=== PATIENT | female | born 1955 | race Caucasian/White ===

== ENCOUNTER → 2017-05-01 | Outpatient (CLI) | payer BC, OTHER ==
[~2017-05-01] MED LIST: ASPIRIN EC81 M1 PO; BAYER ASPIRIN325 M1 PO; FIBERCON625 MG PO; PLETAL100 M1 PO
--- NOTE | ~2017-05-01 | US37 ---
[facility] A Service of [facility] & [facility] RADIOLOGY TEXT RESULTS PATIENT: KARINA GARCIA LOCATION: CNIV : 53 UNIT #: [id number] AGE: [address]: Juan Luis Oconnor MD SEX: F ORDER DR: [id number] [facility] [address] [place], [place] [address] [id number] O MR#: [id number] Acc #: [id number] NAME: KARINA GARCIA : 1955 SEX: F STUDY DATE/TIME: 05/01/2017 9:47 UNIT: CNIV ROOM: STUDY DESCRIPTION: US Carotid W/Doppler Bilateral Attending Physician: Juan Luis Oconnor M.D. Referring Physician: Juan Luis Oconnor M.D. Ordering Physician: Juan Luis Oconnor M.D. Primary Care Physician: Vivi Kwong M.D. MEDICAL IMAGING REPORT This report is preliminary unless electronic signature is present EXAM Carotid duplex scan, 05/01/2017 HISTORY Carotid stenosis. FINDINGS The right common carotid artery has minimal plaque. There is a small amount of heterogeneous dense plaque in the right carotid bulb, which extends up into the proximal internal and external carotid arteries. Peak systolic velocity in the mid right internal carotid artery is 62 cm/sec with an end-diastolic velocity of 18 cm/sec. The ICA/CCA ratio on the right is 0.74. Peak systolic velocity in the right external carotid artery is 51 cm/sec. The right vertebral artery is patent with antegrade flow. The left common carotid artery has minimal plaque. There is a small amount of heterogeneous dense plaque in the left carotid bulb, which extends up into the proximal internal and external carotid arteries. Peak systolic velocity in the distal left internal carotid artery is 59 cm/sec with an end-diastolic velocity of 15 cm/sec. The ICA/CCA ratio on the left is 0.68. Peak systolic velocity in the left external carotid artery is 51 cm/sec. The left vertebral artery is patent with antegrade flow. IMPRESSION Small amount of plaque, but no significant stenosis (less than 50%) in the internal and external carotid arteries bilaterally. Patent vertebral arteries bilaterally with antegrade flow. Dictated by... [facility] A Service of [facility] & [facility] RADIOLOGY TEXT RESULTS PATIENT: KARINA GARCIA LOCATION: [facility] : 53 UNIT #: [id number] AGE: [address]: Juan Luis Oconnor MD SEX: F ORDER DR: Tyrone Vo M.D. THIS IS AN ELECTRONICALLY VERIFIED REPORT Tyrone Vo M.D. at 05/03/2017 7:28 AM JORGE/diogo TD: 05/01/2017 23:42 JOB #: [id number] MEDICAL IMAGING REPORT Page 1 of 1 COPY
== END | disposition home or self-care (01) ==
LOC: CNIV 08:42
DX: I65.23 Occlusion and stenosis of bilateral carotid arteries (principal)
CPT/HCPCS: 93880

== ENCOUNTER → 2017-05-08 | Outpatient (CLI) | payer BC, OTHER ==
--- NOTE | ~2017-05-08 | US135 ---
[facility] A Service of [facility] & [facility] RADIOLOGY TEXT RESULTS PATIENT: KARINA GARCIA LOCATION: CNIV : 53 UNIT #: [id number] AGE: [address]: Antonette Choi SEX: F ORDER DR: [id number] [facility] [address] [place], [place] [address] [id number] O MR#: [id number] Acc #: [id number] NAME: KARINA GARCIA : 1955 SEX: F STUDY DATE/TIME: 05/08/2017 11:14 UNIT: CNIV ROOM: STUDY DESCRIPTION: US U/L Ext Art Study Comp Kaushik Attending Physician: Antonette Choi A.P.R.N. Referring Physician: Antonette Choi A.P.R.N. Ordering Physician: Antonette Choi A.P.R.N. Primary Care Physician: Vivi Kwong M.D. MEDICAL IMAGING REPORT This report is preliminary unless electronic signature is present EXAM Ankle to brachial indices, 05/08/2017 HISTORY Peripheral artery disease, claudication FINDINGS The right brachial pressure is 135 and the left brachial pressure is 156. The right dorsalis pedis pressure is 100, posterior tibial 103, and toes 69 for an ankle to brachial index of 0.66. Toe brachial index on the right is 0.44. The left upper thigh pressure is 89, lower thigh 82, calf 78, dorsalis pedis 73, posterior tibial 66 and toe 34 for an ankle to brachial index of 0.47. Toe brachial index on the left is 0.22. Doppler wave form analysis indicates a biphasic signal in the posterior tibial and dorsalis pedis arteries on the right and a monophasic signal in the posterior tibial and dorsalis pedis arteries on the left. Pulse volume recording tracings demonstrate dampening of the amplitude of the signal at all levels in both legs. IMPRESSION Moderate ischemia of the right leg with an ankle to brachial index of 0.66. Severe ischemia of the left leg with an ankle to brachial index of 0.47. 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 [facility]. [facility] A Service of [facility] & [facility] RADIOLOGY TEXT RESULTS PATIENT: KARINA GARCIA LOCATION: [facility] : 53 UNIT #: [id number] AGE: [address]: Antonette Choi SEX: F ORDER DR: Dictated by... Tyrone Vo M.D. THIS IS AN ELECTRONICALLY VERIFIED REPORT Tyrone Vo M.D. at 05/09/2017 7:42 AM SBS/to TD: 05/08/2017 21:34 JOB #: [id number] MEDICAL IMAGING REPORT Page 1 of 1 COPY
== END | disposition home or self-care (01) ==
LOC: CNIV 11:03
DX: I73.9 Peripheral vascular disease, unspecified (principal); I99.8 Other disorder of circulatory system
CPT/HCPCS: 93923